=== PATIENT | female | born 1990 ===

== ENCOUNTER 2017-10-12 19:42 | Emergency (ER) | payer MEDICAID ==
[2017-10-12 19:54] VITALS: BMI 25.6
[2017-10-12] MEDS ORDERED: Sodium Chloride 0.9% 1,000 ML IV STA (20:00)
[2017-10-12 20:10] VITALS: PULSE 58; TEMP 98.4; O2SAT 100
[2017-10-12 20:50] LABS: ALB/GLOB RATIO 1.2 (1.1-1.8); ALKALINE PHOSPHATASE 44 U/L (38-126); ALT/SGPT 27 U/L (7-56); AST/SGOT 20 U/L (14-36); BILIRUBIN,TOTAL 0.4 mg/dL (0.2-1.3); BLOOD UREA NITROGEN 13 mg/dL (7-21); CALCIUM 9.4 mg/dL (8.4-10.5); CARBON DIOXIDE 26 mmol/L (21-33); CHLORIDE 106 mmol/L (98-107); GFR AFRICAN-AMERICAN > 60; GLUCOSE,RANDOM 92 mg/dL (70-110); LIPASE 89 U/L (23-300); POTASSIUM 4.2 mmol/L (3.6-5.0); SODIUM 141 mmol/L (132-148); TOTAL PROTEIN 7.4 g/dL (5.8-8.3)
--- NOTE | 2017-10-12 21:00 | ED PDOC ---
Arrival/HPI <CorkySaurav - Last Filed: 10/12/17 21:00> - General Historian: Patient <Marcello Rudolph Carmela - Last Filed: 10/12/17 22:31> - General Chief Complaint: Abdominal Pain Time Seen by Provider: 10/12/17 19:43 - History of Present Illness Narrative History of Present Illness (Text): 10/12/17 22:27 26yo female with no PMHx who present with complaint of epigastric pain for once week. States she saw her PMD and was given Ranitidine for gas. States she took it without relieve. She denies nausea, vomiting, diarrhea, constipation, fever, chills, urinary symptoms, chest pain, SOB, any other complaint. (Marcello Rudolph A) Past Medical History - Provider Review Nursing Documentation Reviewed: Yes - Psychiatric Hx Substance Use: No - Anesthesia Hx Anesthesia: No <Marcello Rudolph Carmela - Last Filed: 10/12/17 22:31> Family/Social History - Physician Review Nursing Documentation Reviewed: Yes Family/Social History: Unknown Family HX Smoking Status: Never Smoked Hx Alcohol Use: No Hx Substance Use: No <Marcello Rudolph A - Last Filed: 10/12/17 22:31> Allergies/Home Meds <CorkySaurav - Last Filed: 10/12/17 21:00> <Marcello Rudolph Carmela - Last Filed: 10/12/17 22:31> Allergies/Adverse Reactions: Allergies No Known Allergies Allergy (Verified 10/12/17 19:54) Home Medications: Home Meds Medication Instructions Recorded Confirmed raNITIdine [Zantac Soln 5ml] 150 mg PO DAILY 10/12/17 10/12/17 Review of Systems - Physician Review All systems were reviewed & negative as marked: Yes - Review of Systems Constitutional: Normal Eyes: Normal ENT: Normal Respiratory: Normal Cardiovascular: Normal Gastrointestinal: Abdominal Pain. absent: Constipation, Diarrhea, Nausea, Vomiting, Hematochezia, Hematemesis Genitourinary Female: Normal Musculoskeletal: Normal Skin: Normal Neurological: Normal Endocrine: Normal Hemo/Lymphatic: Normal Psychiatric: Normal <Marcello Rudolph A - Last Filed: 10/12/17 22:31> Physical Exam Vital Signs Reviewed: Yes Temperature: Afebrile Blood Pressure: Normal Pulse: Regular Respiratory Rate: Normal Appearance: Positive for: Well-Appearing, Non-Toxic, Comfortable Pain Distress: None Mental Status: Positive for: Alert and Oriented X 3 - Systems Exam Head: Present: Atraumatic, Normocephalic Pupils: Present: PERRL Extroacular Muscles: Present: EOMI Conjunctiva: Present: Normal Mouth: Present: Moist Mucous Membranes Neck: Present: Normal Range of Motion Respiratory/Chest: Present: Clear to Auscultation, Good Air Exchange. No: Respiratory Distress, Accessory Muscle Use Cardiovascular: Present: Regular Rate and Rhythm, Normal S1, S2. No: Murmurs Abdomen: Present: Normal Bowel Sounds, Other (Soft). No: Tenderness, Distention , Peritoneal Signs, Rebound, Guarding, McBurney's Point Tender, Rovsing's Sign Present Back: Present: Normal Inspection Upper Extremity: Present: Normal Inspection. No: Cyanosis, Edema Lower Extremity: Present: Normal Inspection. No: Edema Neurological: Present: GCS=15, CN II-XII Intact, Speech Normal Skin: Present: Warm, Dry, Normal Color. No: Rashes Psychiatric: Present: Alert, Oriented x 3, Normal Insight, Normal Concentration <DiruHappiness A - Last Filed: 10/12/17 22:31> Vital Signs Temp Pulse Resp BP Pulse Ox 10/12/17 21:20 58 L 16 127/86 100 10/12/17 20:03 98.4 F 58 L 20 128/68 100 Medical Decision Making <Saurav Fried - Last Filed: 10/12/17 21:00> <DireltonHappiness A - Last Filed: 10/12/17 22:31> ED Course and Treatment: 10/12/17 22:29 PT in ED for stated history. Her PE was benign. Lab was unremarkable. Her pain resolved in ED with pepcid. She was DC home with protonix rx. Referred to her PMD/GI. TRT ED for any new or worsening symptoms. (Diru,Happiness A) - Lab Interpretations Lab Results: 10/12/17 20:26 10/12/17 20:26 Lab Results 10/12/17 20:26: Urine Color Yellow, Urine Appearance Clear, Urine pH 6.0, Ur Specific [place] 1.020, Urine Protein Trace H, Urine Glucose (UA) Negative, Urine Ketones Negative, Urine Blood Negative, Urine Nitrate Negative, Urine Bilirubin Negative, Urine Urobilinogen 0.2, Ur Leukocyte Esterase Trace H, Urine RBC 0 - 2, Urine WBC 1 - 3, Ur Epithelial Cells 3 - 4, Urine Bacteria Rare 10/12/17 20:26: Sodium 141, Potassium 4.2, Chloride 106, Carbon Dioxide 26, Anion Gap 13, BUN 13, Creatinine 0.8, Est GFR ( Amer) > 60, Est GFR (Non- Af Amer) > 60, Random Glucose 92, Calcium 9.4, Total Bilirubin 0.4, AST 20, ALT 27, Alkaline Phosphatase 44, Total Protein 7.4, Albumin 4.1, Globulin 3.4, Albumin/Globulin Ratio 1.2, Lipase 89 10/12/17 20:26: PT 13.8 H, INR 1.26 H, APTT 32.6 10/12/17 20:26: WBC 10.3, RBC 3.94, Hgb 12.0, Hct 34.8 L, MCV 88.3, MCH 30.5, MCHC 34.5, RDW 13.5, Plt Count 259, MPV 11.4 H, Gran % 62.2, Lymph % (Auto) 28.3 , [place] % (Auto) 8.6 H, Eos % (Auto) 0.7 L, Baso % (Auto) 0.2, Gran # 6.40, Lymph # 2.9, [place] # 0.9 H, Eos # 0.1, Baso # 0.02 - Medication Orders Current Medication Orders: Discontinued Medications Famotidine (Pepcid) 20 mg IVP STAT STA Stop: 10/12/17 20:01 Last Admin: 10/12/17 20:26 Dose: 20 mg IVP Administration Document 10/12/17 20:26 DE (Rec: 10/12/17 20:26 DE [id number]) Charges for Administration # of IVP Administrations 1 Sodium Chloride (Sodium Chloride 0.9%) 1,000 mls @ 1,000 mls/hr IV .Q1H STA Stop: 10/12/17 20:59 Last Admin: 10/12/17 20:26 Dose: 1,000 mls/hr eMAR Start Stop Document 10/12/17 20:26 DE (Rec: 10/12/17 20: DE [id number]) Intravenous Solution Start Date 10/12/17 Start Time 20:26 Ondansetron HCl (Zofran Inj) 4 mg IVP STAT STA Stop: 10/12/17 20:01 Last Admin: 10/12/17 20:26 Dose: 4 mg IVP Administration Document 10/12/17 20:26 HI (Rec: 10/12/17 20:26 HI [id number]) Charges for Administration # of IVP Administrations 1 - PA / [employer]OUTE SALESMAN [employer]IVER / Resident Statement MD/DO has reviewed & agrees with the documentation as recorded. <Saurav Fried - Last Filed: 10/12/17 21:00> Disposition/Present on Arrival <Saurav Fried - Last Filed: 10/12/17 21:00> - Present on Arrival Any Indicators Present on Arrival: No History of DVT/PE: No History of Uncontrolled Diabetes: No Urinary Catheter: No History of Decub. Ulcer: No History Surgical Site Infection Following: None - Disposition Have Diagnosis and Disposition been Completed?: Yes Disposition Time: 21:15 Patient Plan: Discharge <Marcello Rudolph - Last Filed: 10/12/17 22:31> - Disposition Diagnosis: Abdominal pain Disposition: HOME/ ROUTINE Condition: STABLE Discharge Instructions (ExitCare): Abdominal Pain (ED) Additional Instructions: follow up with your Doctor Return to ED for any new symptoms Prescriptions: Pantoprazole Sodium [Protonix] 40 mg PO DAILY #15 ect Referrals: Jermaine Terrazas, [Primary Care Provider] - Follow up with primary Forms: [employer] (Algerian)
[2017-10-12 21:12] LABS: BASO # 0.02 K/mm3 (0.0-2.0); BASO % 0.2 % (0.0-3.0); EOS # 0.1 (0.0-0.7); EOS % 0.7 % (1.5-5.0); GRAN # 6.4 (1.4-6.5); GRAN % 62.2 % (50.0-68.0); HEMATOCRIT 34.8 % (36.0-48.0); LYMPH # 2.9 (1.2-3.4); LYMPH % 28.3 % (22.0-35.0); MEAN CELL VOLUME 88.3 fl (80.0-105.0); MEAN CORPUSCULAR HEMOGLOBIN 30.5 pg (25.0-35.0); MEAN CORPUSCULAR HGB CONC 34.5 g/dl (31.0-37.0); MEAN PLATELET VOLUME 11.4 fl (7.0-11.0); MONO # 0.9 (0.1-0.6); MONO % 8.6 % (1.0-6.0); RED CELL DISTRIBUTION WIDTH 13.5 % (11.5-14.5); URINE BILIRUBIN NEGATIVE (NEGATIVE); URINE BLOOD NEGATIVE (NEGATIVE); URINE GLUCOSE (UA) NEGATIVE (NEGATIVE); URINE KETONE NEGATIVE (NEGATIVE); URINE LEUKOCYTE ESTERASE TRACE Leu/uL (NEGATIVE); URINE PROTEIN TRACE mg/dL (<30 mg/dL); URINE UROBILINOGEN 0.2 E.U./dL (<1 E.U./dL); WHITE BLOOD COUNT 10.3 10^3/ul (4.5-11.0)
[2017-10-12 21:14] LABS: URINE APPEARANCE CLEAR (CLEAR); URINE COLOR YELLOW (YELLOW)
[2017-10-12 21:19] LABS: INR 1.26 (0.93-1.08)
[2017-10-12 21:20] LABS: PARTIAL THROMBOPLASTIN TIME 32.6 Seconds (25.1-36.5)
[2017-10-12 21:25] VITALS: BP 127/86; RESP 16
[2017-10-12 21:36] LABS: URINE RBC 0 - 2 /hpf (0-2)
[2017-10-12 21:37] LABS: URINE BACTERIA RARE (NEG)
== END 2017-10-12 21:25 | disposition home or self-care (01) ==
LOC: ED 19:42
DX: R10.9 Unspecified abdominal pain (principal)
CPT/HCPCS: 80053; 81001; 83690; 85025; 85610; 85730; 87086; 96374; 96375; 99284; J2405; J7040

== ENCOUNTER 2018-02-02 21:49 | Emergency (ER) | payer MEDICAID ==
[2018-02-02 21:49] VITALS: BMI 25.6
== END 2018-02-02 22:35 | disposition left against medical advice (07) ==
LOC: ED 21:49
DX: Z02.89 Encounter for other administrative examinations (principal); M79.672 Pain in left foot

== ENCOUNTER 2018-10-21 17:08 | Emergency (ER) | payer MEDICAID ==
[2018-10-21 17:08] VITALS: BMI 25.6
[2018-10-21 17:13] VITALS: BP 126/77; PULSE 85; RESP 18; TEMP 99.2; O2SAT 97
[2018-10-21] MEDS ORDERED: Amoxicillin-Clav 875-125 mg Tab PO STA (17:54)
[2018-10-21] MEDS ORDERED: Ciprofloxacin/Dexamethasone OTIC SUSP AS STA (17:54)
--- NOTE | 2018-10-21 17:54 | ED PDOC ---
Arrival/HPI - General Chief Complaint: ENT Problem Historian: Patient - History of Present Illness Narrative History of Present Illness (Text): 10/21/18 17:43 27 y/o female, no significant pmh, nkda, last tetanus under 5 years ago, c/o right ear injury and foreign body x 2 days. Pt. stated that the rt. ear ring stucked in the rt. ear yesterday, been trying to remove it herself, went to the urgent care and they tried to removed it as well including irrigating and remove it with tool but not successful, no headache, no fever or chills, no other medical or psychological complaints. Past Medical History - Provider Review Nursing Documentation Reviewed: Yes - Infectious Disease Hx of Infectious Diseases: None - Psychiatric Hx Substance Use: No - Anesthesia Hx Anesthesia: No Family/Social History - Physician Review Nursing Documentation Reviewed: Yes Family/Social History: Unknown Family HX Smoking Status: Never Smoked Hx Alcohol Use: No Hx Substance Use: No Allergies/Home Meds Allergies/Adverse Reactions: Allergies No Known Allergies Allergy (Verified 10/12/17 19:54) Home Medications: Home Meds Medication Instructions Recorded Confirmed raNITIdine [Zantac Soln 5ml] 150 mg PO DAILY 10/12/17 10/12/17 Review of Systems - Review of Systems Constitutional: absent: Fatigue, Fevers Eyes: absent: Vision Changes ENT: Other (lt. ear pain and bleeding/foreign body). absent: Hearing Changes Respiratory: absent: SOB, Cough Cardiovascular: absent: Chest Pain Gastrointestinal: absent: Abdominal Pain, Diarrhea, Nausea, Vomiting Skin: absent: Rash, Pruritis Neurological: absent: Headache, Dizziness Psychiatric: absent: Anxiety, Depression Physical Exam Vital Signs Reviewed: Yes Vital Signs Temp Pulse Resp BP Pulse Ox 10/21/18 17:12 99.2 F 85 18 126/77 97 Temperature: Afebrile Blood Pressure: Normal Pulse: Regular Respiratory Rate: Normal Appearance: Positive for: Well-Appearing, Non-Toxic, Comfortable Pain Distress: Mild Mental Status: Positive for: Alert and Oriented X 3 - Systems Exam Head: Present: Atraumatic, Normocephalic Pupils: Present: PERRL Extroacular Muscles: Present: EOMI Conjunctiva: Present: Normal Ears: Present: Other (Ears: rt. TM noted to with bright red blood on the rt. TM and mild abrasion/blood on the rt. auditory canal, lt. TM soniya color and intact, lt. auditory canal with no abrasion/laceration/swelling, no mastoid tenderness, visible rt. auditory canal noted with rt. ear ring back piece noted. ) Mouth: Present: Moist Mucous Membranes Neck: Present: Normal Range of Motion Respiratory/Chest: Present: Clear to Auscultation, Good Air Exchange. No: Respiratory Distress, Accessory Muscle Use Cardiovascular: Present: Regular Rate and Rhythm, Normal S1, S2. No: Murmurs Abdomen: No: Tenderness, Distention, Peritoneal Signs Back: Present: Normal Inspection Upper Extremity: Present: Normal Inspection. No: Cyanosis, Edema Lower Extremity: Present: Normal Inspection. No: Edema Neurological: Present: GCS=15, CN II-XII Intact, Speech Normal Skin: Present: Warm, Dry, Normal Color. No: Rashes Psychiatric: Present: Alert, Oriented x 3, Normal Insight, Normal Concentration Medical Decision Making ED Course and Treatment: 10/21/18 18:00 -Rt. auditory canal back ear piercing removed with the alligator force with direct otoscope, removed with success with 1 attempt and the ears examined again: Ears: rt. TM visible mild bright red blood stained between the border of the rt. TM 7'o clock and rt. medial auditory canal and concerning tympanic injury with no different much injury compared to initially, lt. TM soniya color and intact, bilateral auditory canal with no abrasion/laceration except mild abrasion on the rt. auditory canal, no mastoid tenderness, hearing grossly intact and equal, feeling much better after the foreign body removal. -augmentin/motrin/ciprodex ordered. -Discharge home with augmentin, ciprodex, motrin, keep the right ear dry and clean, follow up with your own pmd and ENT within 2 days, return to the ER for any new or worsening signs or symptoms. - PA / INDUSTRIAL ELECTRICAL TECHNICIAN / Resident Statement MD/DO has reviewed & agrees with the documentation as recorded. Disposition/Present on Arrival - Present on Arrival Any Indicators Present on Arrival: No History of DVT/PE: No History of Uncontrolled Diabetes: No Urinary Catheter: No History of Decub. Ulcer: No History Surgical Site Infection Following: None - Disposition Have Diagnosis and Disposition been Completed?: Yes Diagnosis: Ear canal abrasion, Abnormal tympanic membrane, Tympanic membrane perforation Disposition: HOME/ ROUTINE Disposition Time: 18:13 Patient Plan: Discharge Patient Problems: Current Active Problems Problem Status Onset Abnormal tympanic membrane Acute Ear canal abrasion Acute Tympanic membrane perforation Acute Condition: IMPROVED Additional Instructions: -Discharge home with augmentin, ciprodex, motrin, keep the right ear dry and clean, follow up with your own pmd and ENT within 2 days, return to the ER for any new or worsening signs or symptoms. Prescriptions: Amoxicillin/Clavulanate [Augmentin 875 MG-125 MG] 1 tab PO BID #20 tab Ciprofloxacin/Dexamethasone [Ciprodex Otic] 4 drop AD BID #1 bottle Ibuprofen [Motrin] 600 mg PO QID PRN #20 tab PRN Reason: Other Referrals: Evonne Valentine MD [Primary Care Provider] - Follow up with primary Jose Cotto DO [Staff Provider] - Follow up with primary Forms: [employer] (Chinese), WORK NOTE
== END 2018-10-21 18:20 | disposition home or self-care (01) ==
LOC: ED 17:08
DX: S00.411A Abrasion of right ear, initial encounter (principal); X58.XXXA Exposure to other specified factors, initial encounter; Y92.9 Unspecified place or not applicable; H72.91 Unspecified perforation of tympanic membrane, right ear